=== PATIENT | female | born 2000 | race Caucasian/White ===

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

== ENCOUNTER 2022-01-25 19:30 | Emergency (ER) | payer BC, SELFPAY ==
[2022-01-25 19:34] VITALS: BP 128/81; PULSE 96; RESP 16; TEMP 36.8; O2SAT 96
--- NOTE | 2022-01-25 19:45 | ED.ANXIETY ---
HPI - Anxiety General Chief Complaint: Anxiety Stated Complaint: AMB Time Seen by Provider: 01/25/22 19:41 Source: patient, EMS and RN notes reviewed Mode of arrival: EMS Limitations: no limitations History of Present Illness HPI narrative: patient states that she got in argument with her girlfriend and became anxious. She was hyperventilating felt her hands go numb and tingly. She says that when this happened a year ago she actually had a seizure due to the emotional stress. Her girlfriend did not know how to handle other what to do. She was afraid that with her numbness in her hands that she was going to go into another seizure so she called an ambulance just to be sure because her partner did not know how to handle it. She came in just to be evaluated to be sure she was fine. After arrival she said her symptoms are completely resolved. complaint: anxiety and shortness of breath Onset (ago): minute(s) (45) Symptoms: dyspnea and extremity numbness/tingling Severity: moderate Quality: improving Place: home Provoking factors: emotional stress Relieving factors: rest Exacerbating factors: nothing Associated symptoms: other (dizziness) Related Data Home Medications Medication Instructions Recorded Confirmed No Home Medications 01/25/22 01/25/22 Allergies Allergy/AdvReac Type Severity Reaction Status Date / Time No Known Allergies Allergy Verified 01/25/22 19:47 Review of Systems Review of Systems: All systems reviewed & are unremarkable except as noted in HPI and below PMFSH Past Medical History Medical History (Updated 01/25/22 @ 20:20 by Phoenix Collier MD) Oppositional defiant disorder Seizure disorder (04/16/14) Surgical History Surgical History (Updated 11/26/21 @ 02:03 by Phoenix Collier MD) No pertinent past surgical history Social History Social History Substance use type: marijuana Exam Const: General: healthy appearing, no acute distress and alert Nutritional Appearance: well nourished Orientation/consciousness: patient oriented x3 Other: female tech in room during examination. HENMT: Head: normal to inspection Ears: external ears normal General nose exam: Normal external nose present Face and sinus: normal facial exam Mouth: Yes lip normal and Yes moist mucous membranes Eyes: Conjunctivae: conjunctivae normal Pupils: Equal, round and reactive pupils present EOM: EOMs intact bilaterally Neck: Neck: normal visual inspection Resp: Effort & Inspection: normal respiratory effort Auscultation: clear to auscultation bilaterally Cardio: Rate: regular rate Rhythm: regular rhythm GI: GI Palp: Yes Soft to palpation and No Tenderness to palpation present (GI) Auscultation: normal bowel sounds Back/Spine/Pelvis: Cervical Spine: cervical ROM normal Thoracic/Lumbar Spine: thoraco-lumbar ROM normal Skin: General skin exam: normal color Rashes: no rashes Neuro: General: patient oriented x3, moves all extremities, no meningeal signs, no focal motor deficits and CN's II-XI intact bilaterally Speech: normal speech Gait exam (Neuro): Normal gait present Extrem: General: normal to inspection and no clubbing, cyanosis or edema Psych: Appearance: grossly normal and well kempt Mental Status: mental status grossly normal Affect: normal affect and Anxious affect present ( Improved) Thought content: Yes Normal thought content present Course Course Emergency Course: I discussed with the patient that her symptoms have completely resolved she did not progress into a seizure. I offered her evaluation with blood work and she declined at this time. She wishes to go home. Vital Signs Vital signs: Vital Signs Temperature 36.8 C 01/25/22 19:34 Pulse Rate 96 01/25/22 19:34 Respiratory Rate 16 01/25/22 19:34 Blood Pressure 128/81 01/25/22 19:34 Pulse Oximetry 96 01/25/22 19:34 Temperature 36.8 C 01/25/22 19:34 Pu
[2022-01-25 20:23] VITALS: BP 128/73; PULSE 91; RESP 16; O2SAT 98
== END 2022-01-25 20:30 | disposition home or self-care (01) ==
PROVIDERS: Emergency Provider Emergency Medicine
DX: F41.9 Anxiety disorder, unspecified (principal)
CPT/HCPCS: 99281

== ENCOUNTER 2025-01-16 15:59 | Outpatient (CLI) | payer OTHER, SELFPAY ==
--- NOTE | ~2025-01-16 | US_ITS ---
EXAMINATION: US OB /maternal detail DATE: 01/16/2025 17:12 INDICATION: Encounter for supervision of normal during late second trimester TECHNIQUE: Multiple obstetric sonographic images performed. FINDINGS: There is a single living fetus in transverse lie with head to maternal left at the beginning of imagi ng but which per finger buffs assembler notation varied over the course of the examination. The placenta is ante rior. Amniotic fluid volume is subjectively normal with normal deepest vertical pocket measurement of 4.0 cm. heart rate of 134 beats per minute. Normal cervical length of at least 4.0 cm. The following anatomy was identified as normal: Normal situs solitus Ventricles, choroid plexus, falx and cava septum pellucidum Cerebellum and cisterna magna Nuchal fold Upper lip Spine Four-chamber heart view (no left and right outflow tract views obtained) Diaphragm Stomach Kidneys Bladder 3 vessel cord and cord insertion Bilateral upper and lower extremities including hands and feet The following biometric data were obtained: BPD: 5.4 cm -> 22 weeks 2 days Head circumference: 20.6 cm -> 22 weeks 5 days Abdominal circumference: 19.6 cm -> 24 weeks 2 days Femur length: 3.7 cm -> 21 weeks 6 days The femur length to abdominal circumference and head circumference ratios are below the normal range. Head circumference to abdominal circumference ratio: 1.06 (normal range 1.05-1.21). Estimated weight: 563 g (+/-) 84 g. or 1 lbs. 4 oz. (+/-) 3 oz. IMPRESSION: 1. Single living fetus with variable presentation with heart rate of 134 bpm. 2. Gestational age by ultrasound of 28 weeks 6 day(s) (+/-) 1 week 4 day(s) with ultrasound estimat ed date of delivery (GIACOMO) of 05/16/2025. Estimated weight is 55th percentile by Hadlock criteria when 05/16/2025 is used as the GIACOMO. Please correlate with clinical information or earlier ultrasounds for most accurate GIACOMO. 3. Normal survey including the four-chamber heart view however left and right ventricular outfl ow tract views were not obtained. 4. Discordant biometric data with femur length to head circumference and femur length to abdominal ci rcumference ratio below the normal range. Reviewed, dictated and finalized at location A. IMPRESSION: 1. Single living fetus with variable presentation with heart rate of 134 bpm. 2. Gestational age by ultrasound of 28 weeks 6 day(s) (+/-) 1 week 4 day(s) w ith ultrasound estimated date of delivery (GIACOMO) of 05/16/2025. Estimated w eight is 55th percentile by Hadlock criteria when 05/16/2025 is used as the GIACOMO. Please correlate with clinical information or earlier ultrasounds for most acc urate GIACOMO. 3. Normal survey including the four-chamber heart view however left and r ight ventricular outflow tract views were not obtained. 4. Discordant biometric data with femur length to head circumference and femur length to abdominal circumference ratio below the normal range.
--- OUTSIDE RECORDS SUMMARY | 2025-01-16 16:33 | XMS_ITS | Clinical Summary ---
Author Organization [facility] Address [address] [place] [address] Care Team Providers Care Jury Consultant Name Role Phone Unavailable Primary Care Provider Unavailabl e Source Comments [facility],non-owned Affiliates and Associated Physician Practices is amultiple site organization consisting of ambulatory clinics and hospital sitesin [place], [place], [place] and [place]. This disclosure is being madepursuant to the Care Everywhere program and may not contain all information available regarding this patient. Last updated 18.[facility] Active Problems Problem Noted Date Diagnosed Date Supervision of high-risk of antonieta medina igravida 01/15/2025 Overview (01/15/2025): Dating: PNL: Pap: GC/CT/Trich: Urine cx: UDS: H/H/P: HgbE: Genetics: CF: SMA: Anatomy US: Flu Vaccine: Covid Vaccine: RSV Vaccine: HCV: LFTs: Third Trimester Tdap: HIV/Syphilis: H/H/Plt: GCT: GBS: Feeding: Contraception: Comments Yes Social History Tobacco Use Types Packs/Day Years Used Date Smoking Tobacco: Never Assessed Comments Yes Sex and Gender Information Value Date Recorded Sex Assigned at Not on file Legal Sex Female 10:41 AM CDT Gender Identity Not on file Sexual Orientation Not on file Plan of Treatment Health Maintenance Due Date Last Done Comments PAP SMEAR 2002 HIV SCREENING 2017 HPV VACCINE (1 - 3-dose series) 2017 CHLAMYDIA/GONORRHEA SCREENING 2018 MENINGOCOCCAL (Group B) VACCINE SHARED DECISION-MAKING (1 of 2 - Standard) 2018 HEPATITIS C SCREENING 05/20/2020 DTAP/TDAP/TD VACCINES (1 - Tdap) 2021 HEPATITIS B VACCINE (1 of 3 - 19+ 3-dose series) 2021 COVID-19 VACCINE (3 2023-2 5 season) 2024 06/17/2021, 05/12/2021 DEPRESSION SCREENING 09/19/2024 INFLUENZA VACCINE (Season Ended) 2025 07/20/2023, 06/14/2016, 08/06/2015 ZOSTER VACCINE (1 of 2) 2052 HIB VACCINE Aged Out No longer eligi ble based on patient's age to complete this topic MENINGOCOCCAL GROUPS A/C/Y/W VACCINE Aged Out No longer eligible b ased on patient's age to complete this topic PNEUMOCOCCAL VACCINE Aged Out No long er eligible based on patient's age to complete this topic Insurance [employer] [facility] [employer] [facility] [employer] [facility]
== END 2025-01-16 16:00 | disposition home or self-care (01) ==
PROVIDERS: Visit Provider Obstetrics & Gynecology
DX: Z34.92 Encounter for supervision of normal pregnancy, unspecified, second trimester (principal); Z3A.28 28 weeks gestation of pregnancy
CPT/HCPCS: 76805